=== PATIENT | female | born 1970 | race African-American/Black ===

== ENCOUNTER 2025-04-10 15:47 | Emergency (ER) | payer OTHER ==
[~2025-04-10] VITALS: Ht 162.6 cm; Wt 91.2 kg
[2025-04-10 15:47] VITALS: BP 132/89; PULSE 88; RESP 18; TEMP 98.4; O2SAT 95
[2025-04-10] MEDS ORDERED: FLOMAX PO ONE (16:23)
[2025-04-10] MEDS ORDERED: ZOFRAN ODT ONE (16:24)
[2025-04-10] MEDS ORDERED: DILAUDID ONE (16:25)
[2025-04-10] MEDS: DILAUDID IM STA (16:28)
[2025-04-10] MEDS: ZOFRAN ODT SL STA (16:28)
[2025-04-10] MEDS: FLOMAX PO STA (16:28)
[2025-04-10 16:41] VITALS: BP 144/79; PULSE 89; RESP 18; O2SAT 96
== END 2025-04-10 16:40 | disposition home or self-care (01) ==
LOC: ER 15:47
DX: R10.9 Unspecified abdominal pain (principal); E11.9 Type 2 diabetes mellitus without complications; E78.00 Pure hypercholesterolemia, unspecified; I10 Essential (primary) hypertension; J44.9 Chronic obstructive pulmonary disease, unspecified; F17.200 Nicotine dependence, unspecified, uncomplicated; Z86.73 Personal history of transient ischemic attack (TIA), and cerebral infarction without residual deficits; Z88.6 Allergy status to analgesic agent; Z88.8 Allergy status to other drugs, medicaments and biological substances; Z90.49 Acquired absence of other specified parts of digestive tract; Z90.710 Acquired absence of both cervix and uterus
CPT/HCPCS: 99283; 96372; J1171; J8499